=== PATIENT | male | born 1990 | race American Indian/Alaskan Native ===

== ENCOUNTER 2021-05-27 08:14 | Emergency (ER) | payer SELFPAY ==
[2021-05-27] MEDS ORDERED: dexAMETHasone 4 MG/ML VIAL IM ONE (08:23)
--- NOTE | 2021-05-27 08:26 | Emergency Department Report ---
Minor Respiratory - HPI Stated Complaint: SORE THROAT Time Seen by Provider: 05/27/21 08:23 Duration: 3 Days Pain Location: Throat Severity: moderate Minor Respiratory: Yes Sore Throat, Yes Able to Tolerate Fluids, Yes Chest Pain, No Rhinorrhea, No Ear Pain, No Cough, No Sick Contacts, No Hemoptysis, No Shortness of Breath, No Fever Other History: 30 yo AA comes to ER co sore throat and white spots on throat. No fever or chills. no CP. no sob. Ambulatory, non ill and non toxic on exam in triage. Taking po and controlling secretions without difficulty. ED Review of Systems ROS: Stated complaint: SORE THROAT Other details as noted in HPI Comment: All other systems reviewed and negative ED Past Medical Hx - Past Medical History Previous Medical History?: No - Surgical History Past Surgical History?: No - Family History Family history: no significant - Social History Smoking Status: Never Smoker Substance Use Type: None - Medications Home Medications: Home Medications Medication Instructions Recorded Confirmed Last Taken Type metroNIDAZOLE [Flagyl] 500 mg PO BID #14 tablet 06/17/14 Unknown Rx Ciprofloxacin HCl [Cipro] 500 mg PO Q12H #14 tab 07/09/14 Unknown Rx predniSONE [Deltasone] 20 mg PO TID #12 tab 07/09/14 Unknown Rx Mupirocin [Bactroban 2%] 1 applic TP TID #30 gm 05/18/16 Unknown Rx Sulfamethoxazole/Trimethoprim 1 each PO BID #20 tablet 05/18/16 Unknown Rx [Bactrim DS TAB] Amoxicillin [Trimox CAP] 500 mg PO BID #20 capsule 05/27/21 Unknown Rx Minor Respiratory Exam - Exam General: Vital signs noted. No distress. Alert and acting appropriately. HEENT: Yes Pharyngeal Exudates, Yes Moist Mucous Membranes, No Pharyngeal Erythema, No Rhinorrhea, No Conjuctival Injection, No Frontal Tenderness, No M axillary Tenderness Ear: Neither TM Bulge, Neither TM Erythema, Neither EAC Pain, Neither EAC Discharge Neck: Yes Supple, No Adenopathy Lungs: Yes Good Air Exchange, No Wheezes, No Ronchi, No Stridor, No Cough, No Labored Respirations, No Retractions, No Use of Accessory Muscles, No Other Abnormal Lung Sounds Heart: Yes Regular, No Murmur Abdomen: Yes Normal Bowel Sounds, No Tenderness, No Peritoneal Signs Skin: No Rash, No Edema Neurologic: Alert and oriented, no deficits. Musculoskeletal: Unremarkable. ED Medical Decision Making - Medical Decision Making exudates bilateral abc intact taking po Vs normal as charted manually by RN dc home with dc plan of care including medication, diet, pain control and follow up. Pt verbalizes understanding of plan of care - Differential Diagnosis uri Critical care attestation.: If time is entered above; I have spent that time in minutes in the direct care of this critically ill patient, excluding procedure time. ED Disposition Clinical Impression: Exudative pharyngitis Disposition: HOME / SELF CARE / HOMELESS Is pt being admited?: No Does the pt Need Aspirin: No Condition: Stable Instructions: Pharyngitis Additional Instructions: DIET TOLERATED STAY WELL HYDRATED MOTRIN OR TYLENOL FOR PAIN MED ORDERED TODAY FOLLOW UP WITH PCP TUESDAY IF NOT BETTER-REFERRAL BELOW Prescriptions: Amoxicillin [Trimox CAP] 500 mg PO BID #20 capsule Referrals: SUKHDEV OBANDO MD [Staff Physician] - 3-5 Days Time of Disposition: 08:42
== END 2021-05-27 08:54 | disposition home or self-care (01) ==
LOC: ED 08:14
DX: J02.9 Acute pharyngitis, unspecified (principal)
CPT/HCPCS: 99281; J1100